=== PATIENT | male | born 1955 | race Hispanic/Latino ===

== ENCOUNTER → 2023-10-06 | Outpatient (CLI) | payer OTHER ==
[~2023-10-06] MED LIST: FENO160T16 PO; LINA290C PO; MELO-106 PO; OMEP40CA21 PO; TAMS0.4C32 PO
== END | disposition home or self-care (01) ==
LOC: SHCH 14:09
PROVIDERS: ATTEND Internal Medicine Cardiovascular Disease
DX: Z01.810 Encounter for preprocedural cardiovascular examination (principal); I08.0 Rheumatic disorders of both mitral and aortic valves; R94.31 Abnormal electrocardiogram [ECG] [EKG]
CPT/HCPCS: 93306